=== PATIENT | male | born 1960 | race Asian ===

== ENCOUNTER 2022-04-16 18:13 | Emergency (ER) | payer OTHER, MEDICAID ==
[~2022-04-16] VITALS: Ht 175.3 cm; Wt 86.4 kg
[2022-04-16] MEDS ORDERED: AMLO2.5T29 PO (18:19)
[2022-04-16] MEDS ORDERED: LOSA-381 PO (18:19)
[2022-04-16 18:55] VITALS: BP 129/87
== END 2022-04-16 19:02 | disposition home or self-care (01) ==
LOC: EMS 18:24
DX: M54.50 Low back pain, unspecified (principal); I10 Essential (primary) hypertension; Z87.891 Personal history of nicotine dependence
CPT/HCPCS: 99282; Z7502

== ENCOUNTER → 2022-05-22 | Outpatient (CLI) | payer OTHER, MEDICAID ==
[~2022-05-22] MED LIST: AMLO2.5T29 PO; LOSA-381 PO
[2022-05-22 09:29] LABS: BASOPHILS % (AUTO) 0.6 % (0.0-2.0); EOSINOPHILS % (AUTO) 1.9 % (1.0-6.0); HEMATOCRIT 42.7 % (41-53); HEMOGLOBIN 14.4 g/dL (13.5-17.5); LYMPHOCYTES # (AUTO) 1.4 K/uL (1.0-4.8); LYMPHOCYTES % (AUTO) 19.9 % (22.0-44.0); MEAN CORPUSCULAR HEMOGLOBIN 29.7 pg (26.0-34.0); MEAN CORPUSCULAR HGB CONC 33.6 G/dL (31.0-37.0); MEAN CORPUSCULAR VOLUME 88 fL (80-100); MONOCYTES # (AUTO) 0.5 K/uL (0.1-1.0); NEUTROPHILS % (AUTO) 70.6 % (40.0-70.0); PLATELET COUNT (AUTO) 212 K/uL (150-450); RED BLOOD CELL COUNT(AUTO) 4.83 MIL/uL (4.50-5.90); RED CELL DISTRIBUTION WIDTH 13.9 % (11.5-14.5)
[2022-05-22 09:54] LABS: ALBUMIN 4.2 g/dL (3.4-5.0); BILIRUBIN,TOTAL 0.6 mg/dL (0.1-1.0); CALCIUM, TOTAL 8.7 mg/dL (8.8-10.5); CREATININE 1.28 mg/dL (0.60-1.30); HEMOGLOBIN A1C 5.8 % (3.8-5.6); POTASSIUM 3.6 mmol/L (3.5-5.1)
[2022-05-22 10:03] LABS: PROSTATE SPECIFIC ANTIGEN 2.19 ng/mL (0.00-4.00)
[2022-05-22 10:09] LABS: CHOL/HDL RATIO 1.7 (4.2-7.3); TOTAL PROTEIN, SERUM 7.5 g/dL (6.4-8.2)
[2022-05-22 10:36] LABS: THYROID STIMULATING HORMONE 1.06 uIU/mL (0.36-3.74)
== END | disposition home or self-care (01) ==
LOC: LABMN 08:59
PROVIDERS: ATTEND Legal Medicine
DX: I10 Essential (primary) hypertension (principal); E78.5 Hyperlipidemia, unspecified
CPT/HCPCS: 80053; 80061; 82043; 82306; 82570; 82607; 82746; 83036; 84153; 84443; 85025

== ENCOUNTER → 2022-06-25 | Outpatient (CLI) | payer OTHER, MEDICAID | END | disposition home or self-care (01) | LOC: RADMN 11:28 | PROVIDERS: ATTEND Legal Medicine | DX: M47.817 Spondylosis without myelopathy or radiculopathy, lumbosacral region (principal); M48.07 Spinal stenosis, lumbosacral region; M41.87 Other forms of scoliosis, lumbosacral region; M51.37 Other intervertebral disc degeneration, lumbosacral region; M46.1 Sacroiliitis, not elsewhere classified | CPT/HCPCS: 72100 ==